=== PATIENT | male | born 1970 | race Caucasian/White ===

== ENCOUNTER 2022-04-18 10:55 | Emergency (ER) | payer MEDICAID ==
--- NOTE | 2022-04-18 14:41 | ED Physician Documentation ---
PD HPI SKIN - Stated complaint Stated Complaint: LUMP ON BACK - Chief complaint Chief Complaint: Wound - History obtained from History obtained from: Patient - History of Present Illness Timing - onset: How many days ago (2-3 days of increasing size, pain, redness of a lump in lower left thoracic back that has been there without symptoms for about 3 years.) Timing - duration: Days Timing - details: Abrupt onset (lump for 3 years but the swelling/pain/tender has been abrupt over just 2-3 days.) Location: Back Quality / character: Painful, Discolored (redness of skin today), Swelling. No: Draining Associated symptoms: No: Fever, Myalgias, N/V/D Similar symptoms before: Has not had sx before Review of Systems Constitutional: denies: Fever, Chills, Myalgias Neurologic: denies: Focal weakness, Numbness PD PAST MEDICAL HISTORY - Past Medical History Cardiovascular: None Neuro: None Endocrine/Autoimmune: None - Present Medications Home Medications: Ambulatory Orders Medication Instructions Recorded Confirmed Doxycycline Hyclate 100 mg PO BID 7 Days #14 cap 04/18/22 - Allergies Allergies/Adverse Reactions: Allergies Allergy/AdvReac Type Severity Reaction Status Date / Time NSAIDS (Non-Steroidal Allergy Edema Verified 04/18/22 11:01 Anti-Inflamma PD ED PE NORMAL - Vitals Vital signs reviewed: Yes - General General: Alert and oriented X 3, No acute distress, Well developed/nourished - Neck Neck: Supple, no meningeal sign, No adenopathy - Cardiac Cardiac: RRR, No murmur - Respiratory Respiratory: Clear bilaterally - Back Back: Other (right lower thoracic back with subcutaneous lump that is tender, about 4 cm diamater with firmness/slight fluctuance. it is moveable from underlying musculoskeletal structures. tender with some redness of skin sourrounding. ) - Derm Derm: Normal color, Warm and dry Results - Vitals Vitals: Vital Signs - 24 hr 04/18/22 04/18/22 04/18/22 10:58 14:47 15:45 Temperature 36.0 C L 36.8 C 36.6 C Heart Rate 91 68 64 Respiratory 16 20 16 Rate Blood Pressure 135/85 H 128/89 H 120/88 H O2 Saturation 98 100 100 Oxygen O2 Source Room air Procedures - Abscess I&D (location) left lower thoracic back Preparation: Chlorhexadine, Lidocaine 1%, With epi Incision: Incised with scalpel, Purulent drainage (with some more fluid purulence and a lot of thicker sebaceous type material.), Loculations broken PD MEDICAL DECISION MAKING - ED course Complexity details: considered differential, d/w patient Departure - Departure Disposition: 01 Home, Self Care Clinical Impression: Infected sebaceous cyst of skin Condition: Stable Record reviewed to determine appropriate education?: Yes Instructions: ED Abscess IandD Follow-Up: [facility] [Provider Group] Prescriptions: Doxycycline Hyclate 100 mg PO BID 7 Days #14 cap Comments: This appears to be a sebaceous cyst of the skin that has now gotten infected. We incised it and drained as best as possible. I also pulled out some of the sebaceous cyst sac so as this heals hopefully will be recurring. Potentially follow-up with a electrotype finisher once this is well and healed and no further infection for potential excision of any residual cyst sac there. Since it did seem like I got a good portion of it, it may not be necessary to have a repeat procedure but you could see how it feels healing up and if there is a persistent lump or such. Right now there is inflammation in the area because of the infection and swelling. Warm moist compresses to the area to help dry out further material. Doxycycline antibiotic twice daily for the next week. Tylenol every 4-6 hours as needed for pains. Follow-up for recheck if the tenderness, drainage and redness have not resolved over the next 3 to 5 days. Otherwise there will still be some firmness of the swelling in the area in the incision wound itself will heal up over a week or so. Discharge Date/Time: 04/18/22 15:44
[2022-04-18] MEDS ORDERED: ACETAMINOPHEN 325 MG TABLET PO STA (15:14)
[2022-04-18] MEDS ORDERED: DOXYCYCLINE 100 MG TABLET PO STA (15:14)
[2022-04-18 15:46] VITALS: BP 120/88
== END 2022-04-18 15:44 | disposition home or self-care (01) ==
LOC: ED 10:55
DX: B43.2 Subcutaneous pheomycotic abscess and cyst (principal)
CPT/HCPCS: 10060; 99282; A9270

== ENCOUNTER 2022-12-28 09:17 | Emergency (ER) | payer MEDICAID ==
--- NOTE | 2022-12-28 09:39 | ED Physician Documentation ---
PD HPI ABD PAIN - Stated complaint Stated Complaint: ABD PX - History obtained from History obtained from: Patient - History of Present Illness Timing - onset: How many weeks ago (2) Timing - duration: Weeks (2) Timing - details: Abrupt onset, Still present Quality: Aching, Sharp, Other Location: LUQ (left lower costal margin with tenderness and has feeling of misshapen costal margin area. Some upper abd tenderness as well. Hurts with movement and palpation, not with eating nor breathing.) Radiation: Left flank. No: Chest, Lower back Worsened by: Moving, Breathing, Palpation. No: Eating, Position Associated symptoms: No: Fever, Nausea, Vomiting, Hematochezia, Hematuria Recently seen: Clinic (seen by PCP and had rib xrays ordered. These did not show acute injury. However pain and feeling of swelling persist, so here to ER for further testing.) Review of Systems Constitutional: denies: Fever, Chills Nose: denies: Rhinorrhea / runny nose, Congestion Throat: denies: Sore throat Respiratory: denies: Cough Skin: denies: Rash, Lesions PD PAST MEDICAL HISTORY - Past Medical History Cardiovascular: None Neuro: None Endocrine/Autoimmune: None - Present Medications Home Medications: Ambulatory Orders Medication Instructions Recorded Confirmed CYCLOBENZAPRINE Prepack [FLEXERIL 10 mg PO TID PRN 12/28/22 12/28/22 Prepack] Celecoxib [Celebrex] 200 mg PO BID 12/28/22 12/28/22 - Allergies Allergies/Adverse Reactions: Allergies Allergy/AdvReac Type Severity Reaction Status Date / Time NSAIDS (Non-Steroidal Allergy Edema Verified 12/28/22 09:43 Anti-Inflamma PD ED PE NORMAL - Vitals Vital signs reviewed: Yes - General General: Alert and oriented X 3, No acute distress, Well developed/nourished - Cardiac Cardiac: RRR, No murmur - Respiratory Respiratory: No respiratory distress, Clear bilaterally - Abdomen Abdomen: Normal bowel sounds, Soft, Non distended, No organomegaly, Other (tender LUQ without guarding nor percussion tenderness. There is tenderness left lower chest wall with some outward movement felt slightly palpable on left. ) Results - Vitals Vitals: Vital Signs - 24 hr 12/28/22 12/28/22 09:38 09:42 Temperature 36.8 C 36.8 C Heart Rate 94 94 Respiratory 20 16 Rate Blood Pressure 133/90 H 133/100 H O2 Saturation 98 99 Oxygen O2 Source Room air - Labs Labs: Laboratory Tests 12/28/22 12/28/22 12/28/22 09:47 09:47 10:20 WBC 10.5 RBC 5.93 Hgb 16.4 Hct 49.1 MCV 82.8 MCH 27.7 MCHC 33.4 RDW 13.0 Plt Count 283 MPV 9.8 Neut # (Auto) 5.8 Lymph # (Auto) 3.9 H Forrest # (Auto) 0.6 Eos # (Auto) 0.1 Baso # (Auto) 0.1 Absolute Nucleated RBC 0.00 Nucleated RBC % 0.0 Sodium 135 Potassium 4.0 Chloride 103 Carbon Dioxide 27 Anion Gap 5.0 L BUN 15 Creatinine 1.0 Estimated GFR (MDRD) 78 L Glucose 101 Calcium 9.7 Total Bilirubin 0.4 AST 12 ALT 12 Alkaline Phosphatase 70 Total Protein 7.6 Albumin 4.5 Globulin 3.1 Albumin/Globulin Ratio 1.5 Lipase 27 Urine Color LIGHT YELLOW Urine Clarity CLEAR Urine pH 6.5 Ur Specific Evans <=1.005 Urine Protein NEGATIVE Urine Glucose (UA) NEGATIVE Urine Ketones NEGATIVE Urine Occult Blood TRACE-INTA Urine Nitrite NEGATIVE Urine Bilirubin NEGATIVE Urine Urobilinogen 0.2 (NORMAL) Ur Leukocyte Esterase NEGATIVE Ur Microscopic Review NOT INDICATED Urine Culture Comments NOT INDICATED PD Medical Decision Making - ED course Complexity details: reviewed results (unable to obtain imaging here as CT just went offline/broken, and pt not candidate for MRI. ), considered differential (had fallen 2 weeks ago with persistent pain lower costal margin left side and also LUQ abd. Pain not worse with eating, but is with moving and palpation. Had Rib xrays outpt without abnormal fidndings per patient. Consider rib/cartilage injury with local inflammation vs hematoma vs splenic injury.), d/w patient ED course: patient seen and I was ordering CT abd when I was informed that our CT was broken just now and unknown how long to fix. Pt here in ER awaiting MRI instead. However he was noted to have small metal piece left from prior spine surgery, and Radiologist declined doing image. Patient was feeling improved with some pain meds here iin ER. I do not feel ultrasound would give adequate information. Still undetermined how long CT is down, though likely at least into tomorrow. I talked with pt about options. He had injury 2 weeks ago and has normal labs, but still hurting locally. I feel he is stable to not get imaging immediately so did not see need for airflight, and our EMS is too busy today for transfers. Options are to try to transfer pt via ground EMS, discharge him for f/u PMD and outpt CT and follow up with another facility if PMD unable to arrange testing. He is stable for discharge though st ill want imaging for more exact Dx. Departure - Departure Disposition: 01 Home, Self Care Clinical Impression: Fall, accidental, Chest wall contusion, Left upper quadrant abdominal pain Condition: Stable Record reviewed to determine appropriate education?: Yes Follow-Up: ADAM CARABALLO ARNP [Primary Care Provider] - Comments: Our CT scanner unfortunately just went down for repairs unexpectedly. Due to the small metal fragment in your spine, our radiology does not want to do an MRI of the area. Ultrasound would not be sufficient to answer the question of injury to the organs etc. As we discussed, CT would be the best potential imaging. You do seem stable at this point with a normal blood count and blood test showing normal pancreatic and liver enzymes. Your kidney function is good. I printed out a copy of your lab test results. At this point we are discharging you as we discussed. It would make sense for you to follow-up for CT imaging. Your primary care may be able to set that up outpatient or alternatively presenting to a different facility. Tylenol or ibuprofen as needed for pains. Forms: PCP List Discharge Date/Time: 12/28/22 13:13
[2022-12-28 09:55] VITALS: BP 133/100; O2SAT 99
[2022-12-28] MEDS ORDERED: SODIUM CHLORIDE 0.9% 1,000 ML IV STA (10:03)
[2022-12-28] MEDS ORDERED: HYDROmorphone 1 MG/ML CARPUJECT IVP STA ×2 (10:05→10:49)
[2022-12-28] MEDS ORDERED: ONDANSETRON 4 MG/2 ML VIAL IVP STA (10:06)
[2022-12-28 10:30] LABS: BASOPHILS # (AUTO) 0.1 10^3/uL (0.0-0.1); BASOPHILS % (AUTO) 0.6 %; EOSINOPHILS # (AUTO) 0.1 10^3/uL (0.0-0.7); EOSINOPHILS % (AUTO) 1.1 %; HCT - HEMATOCRIT 49.1 % (42.0-52.0); HGB - HEMOGLOBIN 16.4 g/dL (14.0-18.0); LYMPHOCYTES # (AUTO) 3.9 10^3/uL (1.5-3.5); LYMPHOCYTES % (AUTO) 37.2 %; MEAN CORPUSCULAR HEMOGLOBIN 27.7 pg (27.0-31.0); MEAN CORPUSCULAR HGB CONC 33.4 g/dL (32.0-36.0); MEAN CORPUSCULAR VOLUME 82.8 fL (80.0-94.0); MEAN PLATELET VOLUME 9.8 fL (7.4-11.4); MONOCYTES # (AUTO) 0.6 10^3/uL (0.0-1.0); MONOCYTES % (AUTO) 5.3 %; NEUTROPHILS # (AUTO) 5.8 10^3/uL (1.5-6.6); NEUTROPHILS % (AUTO) 55.5 %; PLT - PLATELET COUNT 283 10^3/uL (130-450); RED BLOOD COUNT 5.93 10^6/uL (4.70-6.10); WHITE BLOOD COUNT 10.5 x10^3/uL (4.8-10.8)
[2022-12-28 10:36] LABS: BILIRUBIN,URINE NEGATIVE (NEGATIVE); GLUCOSE, URINE (UA) NEGATIVE (NEGATIVE); KETONES,URINE (UA) NEGATIVE (NEGATIVE); LEUKOCYTE ESTERASE, URINE NEGATIVE (NEGATIVE); NITRITE,URINE NEGATIVE (NEGATIVE); OCCULT BLOOD,URINE TRACE-INTA (NEGATIVE); PH,URINE 6.5 PH (5.0-7.5); PROTEIN,URINE NEGATIVE (NEGATIVE); UROBILINOGEN,URINE 0.2 (NORMAL) E.U./dL (NORMAL)
[2022-12-28 10:37] LABS: CLARITY,URINE CLEAR (CLEAR)
[2022-12-28 10:47] LABS: ALBUMIN 4.5 g/dL (3.2-5.5); ALBUMIN/GLOBULIN RATIO 1.5 (1.0-2.2); BILIRUBIN,TOTAL 0.4 mg/dL (0.2-1.0); CALCIUM 9.7 mg/dL (8.5-10.3); TOTAL PROTEIN 7.6 g/dL (6.4-8.9)
== END 2022-12-28 13:13 | disposition home or self-care (01) ==
LOC: ED 09:17
DX: R10.12 Left upper quadrant pain (principal); S20.212A Contusion of left front wall of thorax, initial encounter; W19.XXXA Unspecified fall, initial encounter
CPT/HCPCS: 36415; 80053; 81003; 83690; 85025; 96374; 96376; 99283; A9585; J1170; 81001; 87086